=== PATIENT | male | born 1990 | race Two or more races ===

== ENCOUNTER 2024-02-14 01:01 | Inpatient (IN) | payer MEDICAID, OTHER ==
[~2024-02-14] VITALS: Ht 185.4 cm; Wt 96.3 kg
[2024-02-14] MEDS: MORPHINE SULFATE 4 MG/ML SYR/VIAL IV ONE (01:45)
[2024-02-14 01:50] LABS: Basophils # (auto) 0.1 10 ^3/uL (0-0.2); Basophils % (auto) 0.6 % (0.0-2.0); Eosinophils # (auto) 0.2 10 ^3/uL (0-0.8); Eosinophils % (auto) 1.8 % (0.0-7.0); Hematocrit 51.2 % (41.0-53.0); Hemoglobin 17.7 g/dL (13.5-17.5); Lymphocytes # (auto) 1.5 10 ^3/uL (0.4-5.4); Lymphocytes % (auto) 13.4 % (10.0-50.0); Mean Corpuscular Hemoglobin 30.8 pg (28.0-32.0); Mean Corpuscular Hgb Conc. 34.6 g/dL (32.0-36.0); Mean Corpuscular Volume 89.1 fL (80.0-100.0); Monocytes # (auto) 0.4 10 ^3/uL (0-1.3); Monocytes % (auto) 3.4 % (0.0-12.0); Neutrophils % (auto) 80.8 % (37.0-80.0); Platelet Count (auto) 270 10^3/uL (140-450); Red Blood Cells 5.75 10^6/uL (4.5-5.90); Red Cell Distribution Width 13.3 % (11.8-14.3); White Blood Cell 11.2 10^3/uL (4.4-10.8)
[2024-02-14 01:53] LABS: Urine Bacteria None Seen /hpf (None Seen)
[2024-02-14 02:08] LABS: Alanine Aminotransferase 39 U/L (7-40); Albumin 4.5 g/dL (3.2-4.8); Alkaline Phosphatase 93 U/L (46-116); Anion Gap 4 (5-15); Aspartate Aminotransferase 23 U/L (13-40); BUN/Creatinine Ratio 12.3 (10.0-20.0); Blood Urea Nitrogen 14 mg/dL (9-23); Calcium 10.1 mg/dL (8.7-10.4); Carbon Dioxide 30 mmol/L (20-30); Chloride 103 mmol/L (98-107); Glucose 126 mg/dL (74-106); Sodium 137 mmol/L (136-145)
[2024-02-14 02:09] LABS: Bilirubin, Total 0.5 mg/dL (0.2-1.0); Total Protein 7.3 g/dL (5.7-8.2)
[2024-02-14 02:13] LABS: Urine Amorphous Crystal FEW /hpf (None Seen); Urine Blood Negative /uL (Negative); Urine Clarity Turbid (Clear); Urine Color Colorless (Yellow); Urine Protein, UAD TRACE (Negative); Urine Specific Gravity 1.025 (1.001-1.035); Urine Urobilinogen Normal (Negative); Urine WBC <1 /hpf (0 - 3); Urine WBC Clumps PRESENT /hpf (None Seen)
[2024-02-14 04:57] VITALS: PULSE 81; RESP 15; O2SAT 96
[2024-02-14] MEDS: ONDANSETRON HCL 4 MG/2 ML VIAL IV ONE (05:48)
[2024-02-14] MEDS: SODIUM CHLORIDE 0.9% 1,000 ML IV ONE (05:52)
[2024-02-14 07:25] VITALS: PULSE 61; RESP 16; O2SAT 99
[2024-02-14] MEDS ORDERED: DOCUSATE SOD 100 MG CAP PO PRN (09:30)
[2024-02-14] MEDS ORDERED: NITROGLYCERIN 0.4 MG SL TAB SL PRN (09:30)
[2024-02-14] MEDS: PIPERACILLIN-TAZOB 3.375GM 100 ML IV ONE (10:06)
[2024-02-14] MEDS: SODIUM CHLORIDE 0.9% 1,000 ML IV SCH (10:07)
[2024-02-14] MEDS: PANTOPRAZOLE 40 MG/10 ML VIAL INJ IV ONE (10:10)
[2024-02-14] MEDS: NICOTINE 21MG/24 HR TOPICAL PATCH TD ONE (10:26)
[2024-02-14 10:32] LABS: Hematocrit 51.5 % (41.0-53.0); Hemoglobin 17.6 g/dL (13.5-17.5)
[2024-02-14] MEDS: PIPERACILLIN-TAZOB 3.375GM 100 ML IV SCH (16:16)
[2024-02-14 16:51] VITALS: PULSE 71; RESP 20; O2SAT 98
[2024-02-14 17:00] VITALS: BP 124/76; PULSE 71; RESP 20; TEMP 97.7; O2SAT 98
[2024-02-14] MEDS: TAMSULOSIN HYDROCHLORIDE 0.4 MG CAP PO ONE (17:36)
[2024-02-14 21:00] VITALS: BP 138/76; PULSE 76; RESP 18; TEMP 97.7; O2SAT 97
[2024-02-14 22:13] LABS: Hematocrit 45.4 % (41.0-53.0); Hemoglobin 15.5 g/dL (13.5-17.5)
[2024-02-15] VITALS (9 sets, daily range): BP systolic 112–133; BP diastolic 47–75; PULSE 70–89; RESP 17–19; TEMP 97.9–98.1; O2SAT 96–100
[2024-02-15 08:29] LABS: Basophils # (auto) 0.1 10 ^3/uL (0-0.2); Basophils % (auto) 0.9 % (0.0-2.0); Eosinophils # (auto) 0.6 10 ^3/uL (0-0.8); Eosinophils % (auto) 7.7 % (0.0-7.0); Hematocrit 47.9 % (41.0-53.0); Hemoglobin 16.5 g/dL (13.5-17.5); Lymphocytes # (auto) 2.1 10 ^3/uL (0.4-5.4); Lymphocytes % (auto) 28.5 % (10.0-50.0); Mean Corpuscular Hemoglobin 31.1 pg (28.0-32.0); Mean Corpuscular Hgb Conc. 34.4 g/dL (32.0-36.0); Mean Corpuscular Volume 90.5 fL (80.0-100.0); Monocytes # (auto) 0.5 10 ^3/uL (0-1.3); Monocytes % (auto) 6.7 % (0.0-12.0); Neutrophils # (auto) 4.2 10 ^3/uL (1.6-8.6); Neutrophils % (auto) 56.2 % (37.0-80.0); Nucleated Red Blood Cells % 0.1 %; Platelet Count (auto) 229 10^3/uL (140-450); Red Cell Distribution Width 13.2 % (11.8-14.3); White Blood Cell 7.4 10^3/uL (4.4-10.8)
[2024-02-15] MEDS ORDERED: SODIUM CHLORIDE LOCK 10 ML ONE (08:41)
[2024-02-15 08:44] LABS: INR 1.03 (0.9-1.15); Partial Thromboplastin Time 29.2 SEC (24.5-34.5); Prothrombin Time 10.9 sec (9.3-11.8)
[2024-02-15 08:46] LABS: Alanine Aminotransferase 25 U/L (7-40); Albumin 3.6 g/dL (3.2-4.8); Alkaline Phosphatase 72 U/L (46-116); Anion Gap 5 (5-15); Aspartate Aminotransferase 16 U/L (13-40); BUN/Creatinine Ratio 10.6 (10.0-20.0); Blood Urea Nitrogen 9 mg/dL (9-23); Calcium 9.1 mg/dL (8.7-10.4); Carbon Dioxide 26 mmol/L (20-30); Chloride 107 mmol/L (98-107); Glucose 83 mg/dL (74-106); Potassium 3.8 mmol/L (3.5-5.1); Sodium 138 mmol/L (136-145)
[2024-02-15 08:47] LABS: Total Protein 5.8 g/dL (5.7-8.2)
[2024-02-15] MEDS: PANTOPRAZOLE 40 MG/10 ML VIAL INJ IV SCH (11:16)
[2024-02-15] MEDS: NICOTINE 21MG/24 HR TOPICAL PATCH TD SCH (11:16)
[2024-02-15 12:08] LABS: Hematocrit 48.3 % (41.0-53.0); Hemoglobin 16.3 g/dL (13.5-17.5)
[2024-02-15] MEDS: LIDOCAINE VISCOUS 2% 15ML UD ONE (12:40)
[2024-02-15] MEDS: fentaNYL CITRATE 100 MCG/2 ML VL ONE (12:41)
[2024-02-15] MEDS: diphenhdrAMINE HCL 50 MG/1 ML VL ONE (12:41)
[2024-02-15] MEDS: MIDAZOLAM HCL 5 MG/ML-1ML VIAL ONE (12:41)
[2024-02-15] MEDS: SODIUM CHLORIDE 0.9% 1,000 ML IV SCH (15:00)
[2024-02-15] MEDS: TAMSULOSIN HYDROCHLORIDE 0.4 MG CAP PO SCH (18:45)
[2024-02-15] MEDS: metroNIDAZOLE 500MG/100ML 100 ML IV SCH (21:14)
[2024-02-15] MEDS: SUCRALFATE 1 GM/10 ML ORAL SUSP PO SCH (21:14)
[2024-02-15 22:06] LABS: Hematocrit 46.2 % (41.0-53.0); Hemoglobin 15.5 g/dL (13.5-17.5)
[2024-02-16 01:00] VITALS: BP 124/58; PULSE 82; RESP 18; TEMP 98.1; O2SAT 99
[2024-02-16 05:00] VITALS: BP 127/75; PULSE 76; RESP 18; O2SAT 99
[2024-02-16 09:00] VITALS: BP 117/66; PULSE 69; RESP 18; TEMP 98; O2SAT 100
[2024-02-16] MEDS: levoFLOXacin 500MG 100 ML IV SCH (09:46)
[2024-02-16 11:18] LABS: Basophils # (auto) 0.1 10 ^3/uL (0-0.2); Basophils % (auto) 1.3 % (0.0-2.0); Eosinophils # (auto) 0.6 10 ^3/uL (0-0.8); Hematocrit 47.5 % (41.0-53.0); Hemoglobin 16.2 g/dL (13.5-17.5); Lymphocytes # (auto) 2.4 10 ^3/uL (0.4-5.4); Lymphocytes % (auto) 28.5 % (10.0-50.0); Mean Corpuscular Hemoglobin 30.4 pg (28.0-32.0); Mean Corpuscular Hgb Conc. 34.2 g/dL (32.0-36.0); Monocytes # (auto) 0.6 10 ^3/uL (0-1.3); Neutrophils # (auto) 4.8 10 ^3/uL (1.6-8.6); Neutrophils % (auto) 56.2 % (37.0-80.0); Platelet Count (auto) 236 10^3/uL (140-450); Red Blood Cells 5.33 10^6/uL (4.5-5.90); White Blood Cell 8.6 10^3/uL (4.4-10.8)
[2024-02-16 11:38] LABS: Alanine Aminotransferase 23 U/L (7-40); Albumin 3.7 g/dL (3.2-4.8); Alkaline Phosphatase 82 U/L (46-116); Anion Gap 2 (5-15); Aspartate Aminotransferase 13 U/L (13-40); BUN/Creatinine Ratio 9.6 (10.0-20.0); Blood Urea Nitrogen 7 mg/dL (9-23); Calcium 8.9 mg/dL (8.7-10.4); Carbon Dioxide 27 mmol/L (20-30); Chloride 109 mmol/L (98-107); Glucose 88 mg/dL (74-106); Sodium 138 mmol/L (136-145)
[2024-02-16 11:39] LABS: Bilirubin, Total 0.6 mg/dL (0.2-1.0)
[2024-02-16 13:00] VITALS: BP 104/54; PULSE 67; RESP 18; TEMP 98.2; O2SAT 98
[2024-02-16 16:10] LABS: Basophils # (auto) 0.1 10 ^3/uL (0-0.2); Basophils % (auto) 1.1 % (0.0-2.0); Eosinophils # (auto) 0.5 10 ^3/uL (0-0.8); Eosinophils % (auto) 6.6 % (0.0-7.0); Hematocrit 50.3 % (41.0-53.0); Hemoglobin 17.1 g/dL (13.5-17.5); Lymphocytes # (auto) 2.4 10 ^3/uL (0.4-5.4); Lymphocytes % (auto) 30.1 % (10.0-50.0); Mean Corpuscular Hemoglobin 30.3 pg (28.0-32.0); Mean Corpuscular Volume 89.3 fL (80.0-100.0); Monocytes # (auto) 0.7 10 ^3/uL (0-1.3); Monocytes % (auto) 8.1 % (0.0-12.0); Neutrophils # (auto) 4.4 10 ^3/uL (1.6-8.6); Neutrophils % (auto) 54.1 % (37.0-80.0); Nucleated Red Blood Cells % 0.1 %; Platelet Count (auto) 260 10^3/uL (140-450); Red Blood Cells 5.63 10^6/uL (4.5-5.90); Red Cell Distribution Width 13.2 % (11.8-14.3); White Blood Cell 8.1 10^3/uL (4.4-10.8)
[2024-02-16 16:34] LABS: Alanine Aminotransferase 28 U/L (7-40); Albumin 4.1 g/dL (3.2-4.8); Alkaline Phosphatase 91 U/L (46-116); Anion Gap 5 (5-15); Aspartate Aminotransferase 14 U/L (13-40); BUN/Creatinine Ratio 6.3 (10.0-20.0); Bilirubin, Total 0.6 mg/dL (0.2-1.0); Blood Urea Nitrogen 5 mg/dL (9-23); Calcium 9.7 mg/dL (8.7-10.4); Carbon Dioxide 27 mmol/L (20-30); Chloride 106 mmol/L (98-107); Glucose 116 mg/dL (74-106); Sodium 138 mmol/L (136-145); Total Protein 6.6 g/dL (5.7-8.2)
[2024-02-16 16:46] VITALS: BP 142/78; PULSE 72; RESP 18; TEMP 98; O2SAT 99
[2024-02-16 21:22] VITALS: BP 132/70; PULSE 67; RESP 18; TEMP 98.2; O2SAT 94
[2024-02-17 01:24] VITALS: BP 120/81; PULSE 64; RESP 18; TEMP 97.9; O2SAT 96
[2024-02-17 04:53] LABS: Basophils # (auto) 0.1 10 ^3/uL (0-0.2); Basophils % (auto) 1.2 % (0.0-2.0); Eosinophils # (auto) 0.6 10 ^3/uL (0-0.8); Eosinophils % (auto) 8.2 % (0.0-7.0); Hematocrit 48.8 % (41.0-53.0); Hemoglobin 16.6 g/dL (13.5-17.5); Lymphocytes # (auto) 2.5 10 ^3/uL (0.4-5.4); Lymphocytes % (auto) 33.5 % (10.0-50.0); Mean Corpuscular Hemoglobin 30.5 pg (28.0-32.0); Mean Corpuscular Volume 89.8 fL (80.0-100.0); Monocytes # (auto) 0.4 10 ^3/uL (0-1.3); Neutrophils # (auto) 3.8 10 ^3/uL (1.6-8.6); Neutrophils % (auto) 52.1 % (37.0-80.0); Nucleated Red Blood Cells % 0.2 %; Platelet Count (auto) 247 10^3/uL (140-450); Red Blood Cells 5.43 10^6/uL (4.5-5.90); Red Cell Distribution Width 13.1 % (11.8-14.3); White Blood Cell 7.3 10^3/uL (4.4-10.8)
[2024-02-17 05:00] VITALS: BP 115/69; PULSE 72; RESP 18; TEMP 97.6; O2SAT 97
[2024-02-17 05:24] LABS: Alkaline Phosphatase 76 U/L (46-116)
[2024-02-17 05:25] LABS: Alanine Aminotransferase 27 U/L (7-40); Albumin 3.7 g/dL (3.2-4.8); Anion Gap 4 (5-15); Aspartate Aminotransferase 17 U/L (13-40); BUN/Creatinine Ratio 6.5 (10.0-20.0); Bilirubin, Total 0.5 mg/dL (0.2-1.0); Blood Urea Nitrogen 5 mg/dL (9-23); Calcium 9.2 mg/dL (8.7-10.4); Carbon Dioxide 28 mmol/L (20-30); Chloride 107 mmol/L (98-107); Glucose 96 mg/dL (74-106); Sodium 139 mmol/L (136-145)
[2024-02-17 08:43] VITALS: BP 123/60; PULSE 75; RESP 16; TEMP 98; O2SAT 99
[2024-02-17] MEDS ORDERED: LIDOCAINE 2% (LOCAL ANESTH.) PF 5ml SDV ONE ×2 (10:48→12:15)
[2024-02-17] MEDS ORDERED: SUGAMMADEX 200mg/2ml Vial (100MG/ML) IV ONE (10:59)
[2024-02-17] MEDS ORDERED: DexAMETHasone SOD PHOS 10MG/1ML VIAL INJ ONE (10:59)
[2024-02-17] MEDS ORDERED: ONDANSETRON HCL 4 MG/2 ML VIAL ONE (10:59)
[2024-02-17] MEDS ORDERED: KETOROLAC TROMETH 30 MG/ML 1ML VIAL ONE (10:59)
[2024-02-17] MEDS ORDERED: fentaNYL CITRATE 100 MCG/2 ML VL ONE (11:02)
[2024-02-17] MEDS ORDERED: KETAMINE 50mg/ML 1ml syringe ONE (11:02)
[2024-02-17] MEDS: ACETAMINOPHEN IV 1000 MG/100ML (10MG/ML) IV ONE (11:20)
[2024-02-17] MEDS: GABAPENTIN 400 MG CAP PO ONE (11:25)
[2024-02-17] MEDS: CELECOXIB 100 MG CAP PO ONE (11:25)
[2024-02-17] MEDS ORDERED: ePHEDrine SULFATE 50 MG/ML AMP ONE (11:55)
[2024-02-17] MEDS: BUPIVACAINE HCL 0.25% P/F 10 ML VIAL ONE (12:20)
[2024-02-17] MEDS: LIDOCAINE W/ EPINEPHRINE 1% 20ML VIAL ONE (12:20)
[2024-02-17 12:35] VITALS: O2SAT 100
[2024-02-17] MEDS ORDERED: hydrALAZINE HCL 20 MG/ML VL IV PRN (12:45)
[2024-02-17] MEDS ORDERED: ePHEDrine SULFATE 50 MG/ML AMP IV PRN (12:45)
[2024-02-17] MEDS ORDERED: NALOXONE HCL 0.4 MG/ML VIAL IV PRN (12:45)
[2024-02-17] MEDS ORDERED: ONDANSETRON HCL 4 MG/2 ML VIAL IV PRN (12:45)
[2024-02-17] MEDS ORDERED: FLUMAZENIL 0.1 MG/ML INJ 10ML MDV IV PRN (12:45)
[2024-02-17] MEDS ORDERED: fentaNYL CITRATE 100 MCG/2 ML VL IV PRN (12:45)
[2024-02-17] MEDS: HYDROmorphone HCL 2 MG/ML VL/or syr IV PRN (12:53)
[2024-02-17] MEDS: oxyCODONE HCL 5MG TAB PO PRN (13:23)
[2024-02-17] MEDS ORDERED: ROCURONIUM 10MG/ML 10ML VIAL IV ONE (13:48)
[2024-02-17] MEDS: ONDANSETRON HCL 4 MG/2 ML VIAL IV PRN (15:23)
[2024-02-17 17:13] VITALS: BP 132/75; PULSE 81; RESP 16; TEMP 98.1; O2SAT 95
[2024-02-17 21:00] VITALS: BP 99/60; PULSE 96; RESP 17; TEMP 98.1; O2SAT 96
[2024-02-18] VITALS (7 sets, daily range): BP systolic 103–127; BP diastolic 47–99; PULSE 66–94; RESP 15–20; TEMP 97.7–98.6; O2SAT 92–100
[2024-02-18] MEDS: MORPHINE SULFATE INJ 2 MG/ml SYRG IV PRN (00:14)
[2024-02-18 06:01] LABS: Basophils # (auto) 0 10 ^3/uL (0-0.2); Basophils % (auto) 0.1 % (0.0-2.0); Eosinophils # (auto) 0 10 ^3/uL (0-0.8); Hematocrit 45.6 % (41.0-53.0); Hemoglobin 15.6 g/dL (13.5-17.5); Lymphocytes # (auto) 1.1 10 ^3/uL (0.4-5.4); Lymphocytes % (auto) 7.9 % (10.0-50.0); Mean Corpuscular Hemoglobin 30.9 pg (28.0-32.0); Mean Corpuscular Hgb Conc. 34.2 g/dL (32.0-36.0); Mean Corpuscular Volume 90.5 fL (80.0-100.0); Monocytes # (auto) 0.5 10 ^3/uL (0-1.3); Monocytes % (auto) 3.8 % (0.0-12.0); Neutrophils # (auto) 12.4 10 ^3/uL (1.6-8.6); Neutrophils % (auto) 88.2 % (37.0-80.0); Platelet Count (auto) 245 10^3/uL (140-450); Red Blood Cells 5.04 10^6/uL (4.5-5.90); Red Cell Distribution Width 13.5 % (11.8-14.3); White Blood Cell 14.1 10^3/uL (4.4-10.8)
[2024-02-18] MEDS: LIDOCAINE 2% JELLY 11ml (GLYDO) ONE (08:06)
[2024-02-18] MEDS: HYDROmorphone HCL 2 MG/ML VL/or syr ONE (08:06)
[2024-02-18 12:26] LABS: Chloride 105 mmol/L (98-107); Potassium 4.7 mmol/L (3.5-5.1); Sodium 135 mmol/L (136-145)
[2024-02-18 12:27] LABS: Anion Gap 7 (5-15); Calcium 9.5 mg/dL (8.7-10.4); Carbon Dioxide 23 mmol/L (20-30)
[2024-02-18 12:32] LABS: BUN/Creatinine Ratio 11.6 (10.0-20.0); Blood Urea Nitrogen 10 mg/dL (9-23); Glucose 115 mg/dL (74-106)
[2024-02-19 01:00] VITALS: BP 122/63; PULSE 87; RESP 18; TEMP 98.2; O2SAT 100
[2024-02-19 05:00] VITALS: BP 112/58; PULSE 79; RESP 18; TEMP 98.2; O2SAT 96
[2024-02-19 07:22] LABS: Basophils # (auto) 0.1 10 ^3/uL (0-0.2); Basophils % (auto) 0.6 % (0.0-2.0); Eosinophils # (auto) 0.2 10 ^3/uL (0-0.8); Eosinophils % (auto) 1.5 % (0.0-7.0); Hemoglobin 16.2 g/dL (13.5-17.5); Lymphocytes # (auto) 3.2 10 ^3/uL (0.4-5.4); Lymphocytes % (auto) 27.5 % (10.0-50.0); Mean Corpuscular Hemoglobin 31.4 pg (28.0-32.0); Mean Corpuscular Hgb Conc. 34.5 g/dL (32.0-36.0); Monocytes # (auto) 0.8 10 ^3/uL (0-1.3); Monocytes % (auto) 6.9 % (0.0-12.0); Neutrophils # (auto) 7.4 10 ^3/uL (1.6-8.6); Neutrophils % (auto) 63.5 % (37.0-80.0); Platelet Count (auto) 248 10^3/uL (140-450); Red Blood Cells 5.16 10^6/uL (4.5-5.90); Red Cell Distribution Width 13.6 % (11.8-14.3); White Blood Cell 11.7 10^3/uL (4.4-10.8)
[2024-02-19 07:37] VITALS: BP 131/68; PULSE 71; RESP 18; TEMP 98.7; O2SAT 92
[2024-02-19 08:00] VITALS: PULSE 71; RESP 18; O2SAT 92
[2024-02-19] MEDS ORDERED: OXY10CRT PO (11:44)
[2024-02-19 12:33] VITALS: BP 135/76; PULSE 56; RESP 18; TEMP 98.4; O2SAT 100
[2024-02-19 12:46] VITALS: BP 135/76; PULSE 54; RESP 18; TEMP 98.4; O2SAT 100
== END 2024-02-19 13:10 | disposition home or self-care (01) | DRG 263 ==
LOC: ER 01:01 → OVERFLOW 09:26 → WEST WING 16:51
PROVIDERS: ADMIT Internal Medicine Hematology & Oncology; ATTEND Internal Medicine
PROC: 0DB98ZX Excision of Duodenum, Via Natural or Artificial Opening Endoscopic, Diagnostic (ICD-10-PCS; 2024-02-15)
PROC: 0DB68ZX Excision of Stomach, Via Natural or Artificial Opening Endoscopic, Diagnostic (ICD-10-PCS; 2024-02-15)
PROC: 0FT44ZZ Resection of Gallbladder, Percutaneous Endoscopic Approach (ICD-10-PCS; principal; 2024-02-17 11:31)
DX: K80.00 Calculus of gallbladder with acute cholecystitis without obstruction (principal); K25.4 Chronic or unspecified gastric ulcer with hemorrhage; K76.0 Fatty (change of) liver, not elsewhere classified; R16.0 Hepatomegaly, not elsewhere classified; F12.10 Cannabis abuse, uncomplicated; N20.0 Calculus of kidney; K29.90 Gastroduodenitis, unspecified, without bleeding; K44.9 Diaphragmatic hernia without obstruction or gangrene; K52.9 Noninfective gastroenteritis and colitis, unspecified; K21.9 Gastro-esophageal reflux disease without esophagitis; F17.210 Nicotine dependence, cigarettes, uncomplicated; E66.3 Overweight; K26.4 Chronic or unspecified duodenal ulcer with hemorrhage; K29.71 Gastritis, unspecified, with bleeding; K29.81 Duodenitis with bleeding; Z82.49 Family history of ischemic heart disease and other diseases of the circulatory system; Z68.27 Body mass index [BMI] 27.0-27.9, adult
CPT/HCPCS: 36415; 74176; 76705; 80048; 80053; 81001; 82247; 85014; 85018; 85025; 85610; 85730; 86850; 86900; 86901; 96361; 96365; 96375; G0378; J0131; J1100; J1885; J1956; J2001; J2250; J2405; J2470; J2543; J2704; J3490

== ENCOUNTER → 2024-02-21 | Emergency (ER) | payer MEDICAID ==
[~2024-02-21] VITALS: Ht 182.9 cm; Wt 80.0 kg
[~2024-02-21] MED LIST: OXY10CRT PO
[2024-02-21 13:34] VITALS: BP 157/64; PULSE 94; RESP 18; O2SAT 97
== END | disposition left against medical advice (07) ==
LOC: ER 13:03
DX: Z00.00 Encounter for general adult medical examination without abnormal findings (principal); Z98.890 Other specified postprocedural states; Z53.21 Procedure and treatment not carried out due to patient leaving prior to being seen by health care provider